=== PATIENT | female | born 1950 | race Caucasian/White ===

== ENCOUNTER 2017-02-06 13:33 | Outpatient (CLI) | END 2017-02-06 13:34 | disposition home or self-care (01) | LOC: NONPT 13:33 | PROVIDERS: ATTEND Family Medicine | DX: R53.83 Other fatigue (principal); E87.6 Hypokalemia; M62.81 Muscle weakness (generalized); I10 Essential (primary) hypertension | CPT/HCPCS: 84132 ==

== ENCOUNTER 2017-02-27 11:48 | Outpatient (CLI) | END 2017-02-27 11:49 | disposition home or self-care (01) | LOC: NONPT 11:48 | PROVIDERS: ATTEND Family Medicine | DX: E87.6 Hypokalemia (principal); E11.65 Type 2 diabetes mellitus with hyperglycemia; R53.83 Other fatigue | CPT/HCPCS: 83036; 84132 ==